=== PATIENT | male | born 1950 | race Caucasian/White ===

== ENCOUNTER 2017-11-15 10:37 | Inpatient (IN) | payer OTHER ==
[~2017-11-15] VITALS: Ht 175.3 cm; Wt 130.6 kg
[2017-11-15 10:38] VITALS: BP_SYST 127
[2017-11-15 11:31] LABS: BASOPHILS % (AUTO) 0.6 % (0.0-2.0); EOSINOPHILS # (AUTO) 0.4 K/uL (0.0-0.4); EOSINOPHILS % (AUTO) 7.6 % (0.0-4.0); HEMATOCRIT 42.8 % (36-54); HEMOGLOBIN 13.6 g/dL (14.0-18.0); LYMPHOCYTES # (AUTO) 0.7 K/uL (1.0-5.5); LYMPHOCYTES % (AUTO) 13.7 % (20.5-51.5); MEAN CORPUSCULAR HEMOGLOBIN 29 pg (27-31); MEAN CORPUSCULAR HGB CONC 32 % (32-36); MEAN CORPUSCULAR VOLUME 91 fL (79.0-98.0); MONOCYTES # (AUTO) 0.6 K/uL (0.0-1.0); NEUTROPHILS # (AUTO) 3.7 K/uL (1.8-7.7); NEUTROPHILS % (AUTO) 67.1 % (40.0-70.0); PLATELET COUNT (AUTO) 169 K/uL (130-430); RED BLOOD CELL COUNT(AUTO) 4.73 MIL/uL (4.2-6.2); RED CELL DISTRIBUTION WIDTH 14.6 % (9.0-15.0); WHITE BLOOD COUNT (AUTO) 5.4 K/uL (4.8-10.8)
[2017-11-15 11:52] LABS: ALBUMIN 3.6 g/dL (3.4-4.8); TOTAL BILIRUBIN 0.7 mg/dL (0.0-1.0)
[2017-11-15 11:55] LABS: PROTHROMBIN TIME 10.6 SECS (9.5-12.5)
[2017-11-15] MEDS ORDERED: MORPHINE 2 MG/ML INJ. SYRINGE IVP PRN (13:00)
[2017-11-15] MEDS ORDERED: ASPIRIN 325 MG TABLET PO ONE (13:00)
[2017-11-15] MEDS ORDERED: OMEG1CAP PO (13:33)
[2017-11-15] MEDS ORDERED: INSNLG7030 SUBCUT (13:33)
[2017-11-15] MEDS ORDERED: DULA1.5P SQ (13:33)
[2017-11-15] MEDS ORDERED: METO25TA3 PO (13:33)
[2017-11-15] MEDS ORDERED: ASPI-1153 PO (13:33)
[2017-11-15] MEDS ORDERED: tramadol PEG (13:33)
[2017-11-15] MEDS ORDERED: zetia PO (13:33)
[2017-11-15] MEDS ORDERED: FURO-149 PO (13:33)
[2017-11-15] MEDS ORDERED: LOSA100T15 PO (13:33)
[2017-11-15] MEDS ORDERED: ALLO300T2 PO (13:33)
[2017-11-15] MEDS ORDERED: CHOL200026 PO (13:33)
[2017-11-15] MEDS ORDERED: GLIP-214 PO (13:33)
[2017-11-15] MEDS ORDERED: LATA2.5D2 OP (13:33)
[2017-11-15 13:34] VITALS: BP_SYST 114
[2017-11-15 16:10] VITALS: BP_SYST 118
[2017-11-15 16:59] LABS: THYROID STIMULATING HORMONE 1.9 uIu/mL (0.36-3.74)
[2017-11-15] MEDS ORDERED: INSULIN REGULAR, HUMAN 100 UNITS/ML, 10 ML VIAL SUBCUT SCH (17:00)
[2017-11-15] MEDS: INSULIN NPH/REGULAR 70-30, 100 UNITS/ML, 10 ML VIAL SUBCUT SCH (17:27)
[2017-11-15 20:12] VITALS: BP_SYST 125
[2017-11-15] MEDS: FUROSEMIDE 40 MG TABLET PO SCH (20:16)
[2017-11-15] MEDS: glipiZIDE XL 5 MG TAB ( GLUCOTROL XL) PO SCH (20:16)
[2017-11-16 00:59] VITALS: BP_SYST 114
[2017-11-16 08:13] VITALS: BP_SYST 142
[2017-11-16] MEDS: INSULIN NPH/REGULAR 70-30, 100 UNITS/ML, 10 ML VIAL SUBCUT SCH ×2 (08:41→17:45)
[2017-11-16] MEDS: ENOXAPARIN SODIUM 30 MG/0.3 ML SYRINGE SUBCUT SCH (08:41)
[2017-11-16] MEDS: ASPIRIN 325 MG TABLET PO SCH (08:42)
[2017-11-16] MEDS: METOPROLOL SUCCINATE 25 MG TAB.SR.24H (TOPROL XL) PO SCH (08:43)
[2017-11-16] MEDS: ALLOPURINOL 300 MG TABLET (ZYLOPRIM) PO SCH (08:43)
[2017-11-16] MEDS: glipiZIDE XL 5 MG TAB ( GLUCOTROL XL) PO SCH ×2 (08:43→20:39)
[2017-11-16] MEDS: LOSARTAN POTASSIUM 50 MG TABLET (COZAAR) PO SCH (08:44)
[2017-11-16] MEDS: NITROGLYCERIN 0.2 MG/HR PATCH.TD24 TD SCH (08:44)
[2017-11-16] MEDS: FUROSEMIDE 40 MG TABLET PO SCH ×2 (08:44→20:40)
[2017-11-16] MEDS: LATANOPROST 2.5 ML DROPS (XALATAN) OP SCH (08:45)
[2017-11-16] MEDS ORDERED: ASPIRIN 81 MG TABLET(ECOTRIN) PO SCH (09:00)
[2017-11-16 12:41] VITALS: BP_SYST 92
[2017-11-16 16:01] VITALS: BP_SYST 123
[2017-11-16 20:00] VITALS: BP_SYST 129
[2017-11-16] MEDS: ACETAMINOPHEN 325 MG TABLET PO PRN (20:38)
[2017-11-16] MEDS: ONDANSETRON HCL 4 MG/2 ML VIAL IVP PRN (20:39)
[2017-11-16] MEDS: INSULIN REGULAR, HUMAN 100 UNITS/ML, 10 ML VIAL (novoLIN R) SUBCUT PRN (20:43)
[2017-11-17] VITALS: BP_SYST 100
[2017-11-17] MEDS: ACETAMINOPHEN 325 MG TABLET PO PRN ×4 (04:36→23:05)
[2017-11-17] MEDS: INSULIN REGULAR, HUMAN 100 UNITS/ML, 10 ML VIAL (novoLIN R) SUBCUT PRN ×2 (06:21→12:32)
[2017-11-17 06:55] LABS: ALBUMIN 3.1 g/dL (3.4-4.8); CALCIUM 8.7 mg/dL (8.4-11.0); CREATININE 2.75 mg/dL (0.55-1.30); POTASSIUM 4.1 mmol/L (3.5-5.1); TOTAL BILIRUBIN 0.6 mg/dL (0.0-1.0)
[2017-11-17 08:30] VITALS: BP_SYST 118
[2017-11-17] MEDS: ASPIRIN 325 MG TABLET PO SCH (08:59)
[2017-11-17] MEDS: ALLOPURINOL 300 MG TABLET (ZYLOPRIM) PO SCH (09:01)
[2017-11-17] MEDS: glipiZIDE XL 5 MG TAB ( GLUCOTROL XL) PO SCH ×2 (09:01→21:14)
[2017-11-17] MEDS: LOSARTAN POTASSIUM 50 MG TABLET (COZAAR) PO SCH (09:03)
[2017-11-17] MEDS: FUROSEMIDE 40 MG TABLET PO SCH ×2 (09:03→21:14)
[2017-11-17] MEDS: METOPROLOL SUCCINATE 25 MG TAB.SR.24H (TOPROL XL) PO SCH (09:03)
[2017-11-17] MEDS: LATANOPROST 2.5 ML DROPS (XALATAN) OP SCH (09:04)
[2017-11-17] MEDS: ENOXAPARIN SODIUM 30 MG/0.3 ML SYRINGE SUBCUT SCH (09:06)
[2017-11-17] MEDS: NITROGLYCERIN 0.2 MG/HR PATCH.TD24 TD SCH (09:07)
[2017-11-17] MEDS: INSULIN NPH/REGULAR 70-30, 100 UNITS/ML, 10 ML VIAL SUBCUT SCH ×2 (09:07→17:41)
[2017-11-17 12:00] VITALS: BP_SYST 108
[2017-11-17 13:24] LABS: BILIRUBIN,URINE 1+ (NEGATIVE); BLOOD, URINE NEGATIVE (NEGATIVE); CLARITY/URINE CLEAR (CLEAR); COLOR,URINE YELLOW (YELLOW); GLUCOSE,URINE NEGATIVE (NEGATIVE); KETONES,URINE NEGATIVE (NEGATIVE); LEUKOCYTE ESTERASE ,URINE NEGATIVE (NEGATIVE); NITRITE, URINE NEGATIVE (NEGATIVE); PROTEIN URINE TRACE (NEGATIVE); UROBILINOGEN,URINE 0.2 (0.2-1.0)
[2017-11-17 13:33] LABS: BACTERIA,URINE FEW /HPF (None Seen); FINE GRANULAR CASTS,URINE 0-10 /LPF (None Seen); RBC,URINE 0-3 /HPF (0-3); WBC,URINE 0-3 /HPF (0-3)
[2017-11-17 13:34] LABS: HYALINE CASTS, URINE 0-10 /LPF (None Seen); MUCUS,URINE None Seen /LPF (None Seen)
[2017-11-17 16:00] VITALS: BP_SYST 110
[2017-11-17] MEDS: ONDANSETRON HCL 4 MG/2 ML VIAL IVP PRN (17:34)
[2017-11-17 20:00] VITALS: BP_SYST 137
[2017-11-17 23:19] VITALS: BP_SYST 132
[2017-11-18 05:18] VITALS: BP_SYST 112
[2017-11-18] MEDS: ACETAMINOPHEN 325 MG TABLET PO PRN ×3 (06:22→21:48)
[2017-11-18] MEDS: INSULIN REGULAR, HUMAN 100 UNITS/ML, 10 ML VIAL (novoLIN R) SUBCUT PRN (06:25)
[2017-11-18 06:43] LABS: BASOPHILS % (AUTO) 0.2 % (0.0-2.0); EOSINOPHILS # (AUTO) 0.5 K/uL (0.0-0.4); EOSINOPHILS % (AUTO) 8.5 % (0.0-4.0); HEMATOCRIT 42.2 % (36-54); HEMOGLOBIN 13.6 g/dL (14.0-18.0); LYMPHOCYTES # (AUTO) 0.7 K/uL (1.0-5.5); LYMPHOCYTES % (AUTO) 12.1 % (20.5-51.5); MEAN CORPUSCULAR HEMOGLOBIN 29 pg (27-31); MEAN CORPUSCULAR HGB CONC 32 % (32-36); MEAN CORPUSCULAR VOLUME 89 fL (79.0-98.0); MONOCYTES # (AUTO) 0.8 K/uL (0.0-1.0); MONOCYTES % (AUTO) 13.4 % (1.7-9.3); NEUTROPHILS % (AUTO) 65.8 % (40.0-70.0); PLATELET COUNT (AUTO) 166 K/uL (130-430); RED BLOOD CELL COUNT(AUTO) 4.75 MIL/uL (4.2-6.2); RED CELL DISTRIBUTION WIDTH 14.6 % (9.0-15.0)
[2017-11-18 06:44] LABS: CALCIUM 8.8 mg/dL (8.4-11.0); CREATININE 3.41 mg/dL (0.55-1.30); POTASSIUM 4.3 mmol/L (3.5-5.1)
[2017-11-18 08:20] VITALS: BP_SYST 102
[2017-11-18] MEDS: ASPIRIN 325 MG TABLET PO SCH (08:41)
[2017-11-18] MEDS: LATANOPROST 2.5 ML DROPS (XALATAN) OP SCH (08:42)
[2017-11-18] MEDS: ALLOPURINOL 300 MG TABLET (ZYLOPRIM) PO SCH (08:42)
[2017-11-18] MEDS: glipiZIDE XL 5 MG TAB ( GLUCOTROL XL) PO SCH ×2 (08:42→20:13)
[2017-11-18] MEDS: METOPROLOL SUCCINATE 25 MG TAB.SR.24H (TOPROL XL) PO SCH (08:43)
[2017-11-18] MEDS: LOSARTAN POTASSIUM 50 MG TABLET (COZAAR) PO SCH (08:44)
[2017-11-18] MEDS: FUROSEMIDE 40 MG TABLET PO SCH (08:44)
[2017-11-18] MEDS: ENOXAPARIN SODIUM 30 MG/0.3 ML SYRINGE SUBCUT SCH (08:47)
[2017-11-18] MEDS: INSULIN NPH/REGULAR 70-30, 100 UNITS/ML, 10 ML VIAL SUBCUT SCH ×2 (08:48→17:05)
[2017-11-18] MEDS ORDERED: LEVOFLOXACIN 500 MG/D5W 100 ML IV ONE (10:00)
[2017-11-18] MEDS: NACL 0.9% 1,000 ML IV SCH (11:05)
[2017-11-18] MEDS ORDERED: DIPHENHYDRAMINE INJ 50 MG/ML VIAL IVP PRN (11:15)
[2017-11-18 12:50] VITALS: BP_SYST 110
[2017-11-18 16:17] VITALS: BP_SYST 100
[2017-11-18 20:00] VITALS: BP_SYST 137
[2017-11-19 00:34] VITALS: BP_SYST 111
[2017-11-19] MEDS: NACL 0.9% 1,000 ML IV SCH ×2 (01:42→18:26)
[2017-11-19] MEDS: ACETAMINOPHEN 325 MG TABLET PO PRN (06:13)
[2017-11-19 06:37] LABS: CALCIUM 8.1 mg/dL (8.4-11.0); CREATININE 2.93 mg/dL (0.55-1.30); POTASSIUM 4.1 mmol/L (3.5-5.1)
[2017-11-19 06:43] LABS: ALBUMIN 3.2 g/dL (3.4-4.8); TOTAL BILIRUBIN 0.5 mg/dL (0.0-1.0)
[2017-11-19 08:00] VITALS: BP_SYST 124
[2017-11-19] MEDS: INSULIN NPH/REGULAR 70-30, 100 UNITS/ML, 10 ML VIAL SUBCUT SCH ×2 (08:30→17:59)
[2017-11-19] MEDS: glipiZIDE XL 5 MG TAB ( GLUCOTROL XL) PO SCH ×2 (09:00→20:22)
[2017-11-19] MEDS: LEVOFLOXACIN 250 MG/D5W 50 ML IV SCH (09:11)
[2017-11-19] MEDS: ASPIRIN 325 MG TABLET PO SCH (09:11)
[2017-11-19] MEDS: LATANOPROST 2.5 ML DROPS (XALATAN) OP SCH (09:11)
[2017-11-19] MEDS: LOSARTAN POTASSIUM 50 MG TABLET (COZAAR) PO SCH (09:12)
[2017-11-19] MEDS: METOPROLOL SUCCINATE 25 MG TAB.SR.24H (TOPROL XL) PO SCH (09:13)
[2017-11-19] MEDS ORDERED: methylPREDNISolone SOD SUCC/PF 62.5 MG/ML VIAL IVP ONE (09:30)
[2017-11-19 12:35] VITALS: BP_SYST 97
[2017-11-19 16:30] VITALS: BP_SYST 113
[2017-11-19] MEDS: INSULIN REGULAR, HUMAN 100 UNITS/ML, 10 ML VIAL (novoLIN R) SUBCUT PRN (17:12)
[2017-11-19 20:00] VITALS: BP_SYST 108
[2017-11-19] MEDS: methylPREDNISolone SOD SUCC/PF 62.5 MG/ML VIAL IVP SCH (20:23)
[2017-11-20 00:01] VITALS: BP_SYST 108
[2017-11-20] MEDS: INSULIN REGULAR, HUMAN 100 UNITS/ML, 10 ML VIAL (novoLIN R) SUBCUT PRN ×2 (06:05→11:39)
[2017-11-20 08:00] VITALS: BP_SYST 114
[2017-11-20] MEDS: INSULIN NPH/REGULAR 70-30, 100 UNITS/ML, 10 ML VIAL SUBCUT SCH (08:52)
[2017-11-20] MEDS: LOSARTAN POTASSIUM 50 MG TABLET (COZAAR) PO SCH (09:00)
[2017-11-20] MEDS: LATANOPROST 2.5 ML DROPS (XALATAN) OP SCH (09:28)
[2017-11-20] MEDS: ASPIRIN 325 MG TABLET PO SCH (09:28)
[2017-11-20] MEDS: methylPREDNISolone SOD SUCC/PF 62.5 MG/ML VIAL IVP SCH (09:28)
[2017-11-20] MEDS: LEVOFLOXACIN 250 MG/D5W 50 ML IV SCH (09:29)
[2017-11-20] MEDS: METOPROLOL SUCCINATE 25 MG TAB.SR.24H (TOPROL XL) PO SCH (09:29)
[2017-11-20] MEDS: glipiZIDE XL 5 MG TAB ( GLUCOTROL XL) PO SCH (09:29)
[2017-11-20] MEDS ORDERED: LEVO250T2 PO (10:55)
[2017-11-20] MEDS ORDERED: PRED20TA PO (10:56)
[2017-11-20] MEDS: NACL 0.9% 1,000 ML IV SCH (12:00)
[2017-11-20 12:26] VITALS: BP_SYST 113
[2017-11-20 12:44] VITALS: BP_SYST 113
== END 2017-11-20 13:27 | disposition home or self-care (01) | DRG 683 ==
LOC: SED 10:37 → STU 12:51
PROVIDERS: ADMIT Internal Medicine; ATTEND Internal Medicine
DX: N17.0 Acute kidney failure with tubular necrosis (principal); I13.0 Hypertensive heart and chronic kidney disease with heart failure and stage 1 through stage 4 chronic kidney disease, or unspecified chronic kidney disease; Z68.41 Body mass index [BMI] 40.0-44.9, adult; N18.3 Chronic kidney disease, stage 3 (moderate); I25.10 Atherosclerotic heart disease of native coronary artery without angina pectoris; E11.22 Type 2 diabetes mellitus with diabetic chronic kidney disease; R91.1 Solitary pulmonary nodule; R21 Rash and other nonspecific skin eruption; E11.42 Type 2 diabetes mellitus with diabetic polyneuropathy; N28.89 Other specified disorders of kidney and ureter; R07.9 Chest pain, unspecified; E66.01 Morbid (severe) obesity due to excess calories; M47.892 Other spondylosis, cervical region; R20.0 Anesthesia of skin; E11.21 Type 2 diabetes mellitus with diabetic nephropathy; I50.9 Heart failure, unspecified; M10.9 Gout, unspecified; E78.5 Hyperlipidemia, unspecified; Z95.1 Presence of aortocoronary bypass graft; Z95.0 Presence of cardiac pacemaker; Z87.01 Personal history of pneumonia (recurrent); Z88.1 Allergy status to other antibiotic agents; Z88.0 Allergy status to penicillin
CPT/HCPCS: 36415; 36600; 70450-TC; 71045; 71250-TC; 72125-TC; 76700-TC; 80048; 80053; 80061; 81000-TC; 82550-TC; 82803-TC; 82962; 83036; 83880; 84443-TC; 84484; 85025; 85610-TC; 85651-TC; 85730-TC; 87040-TC; 87086; 93005; 93306; 93880; 99285; J1200; J1650; J1815; J1956; J2405; J2930; J7030

== ENCOUNTER 2018-01-09 16:18 | Emergency (ER) | payer OTHER ==
[~2018-01-09] VITALS: Ht 175.3 cm; Wt 127.0 kg
[~2018-01-09 16:18] MED LIST: ASPI-1153 PO; CHOL200026 PO; DULA1.5P SQ; GLIP-214 PO; INSNLG7030 SUBCUT; LATA2.5D2 OP; LEVO250T2 PO; METO25TA3 PO; OMEG1CAP PO; PRED20TA PO; tramadol PEG; zetia PO
[2018-01-09 16:25] VITALS: BP_SYST 133
[2018-01-09] MEDS ORDERED: DIPH-TET-PERTUS Vaccine 0.5 ML VIAL (ADACEL) I.M. ONE (16:45)
[2018-01-09] MEDS ORDERED: LIDOCAINE 1% 10 MG/ML, 20 ML MDV INJ ONE (16:45)
[2018-01-09 17:45] VITALS: BP_SYST 129
== END 2018-01-09 17:44 | disposition home or self-care (01) ==
LOC: SED 16:18
DX: S61.211A Laceration without foreign body of left index finger without damage to nail, initial encounter (principal); E11.9 Type 2 diabetes mellitus without complications; I10 Essential (primary) hypertension; Z86.79 Personal history of other diseases of the circulatory system; Z88.0 Allergy status to penicillin; Z88.1 Allergy status to other antibiotic agents; Z79.82 Long term (current) use of aspirin; Z79.899 Other long term (current) drug therapy; W26.8XXA Contact with other sharp object(s), not elsewhere classified, initial encounter; Y93.89 Activity, other specified; Y92.89 Other specified places as the place of occurrence of the external cause; Y99.8 Other external cause status
CPT/HCPCS: 12002; 73130; 90471; 90715; 99284; J2001